=== PATIENT | female | born 1990 | race Caucasian/White ===

== ENCOUNTER 2021-01-08 09:55 | Day surgery (SDC) | payer BC ==
[~2021-01-08] VITALS: Ht 172.7 cm; Wt 119.4 kg
[~2021-01-08 09:55] MED LIST: CYCL10; IBUP800 PO; Norethindrone0.35 MG; TUMS200 MG PO; Verotin-Gr Cap1 EACH PO
== END 2021-01-08 11:38 | disposition home or self-care (01) ==
LOC: ORSCSDS 09:55
PROVIDERS: Student in an Organized Health Care Education/Training Program
PROC: 0DB58ZX Excision of Esophagus, Via Natural or Artificial Opening Endoscopic, Diagnostic (ICD-10-PCS; principal; 2021-01-08 11:15)
PROC: 0DB68ZX Excision of Stomach, Via Natural or Artificial Opening Endoscopic, Diagnostic (ICD-10-PCS; principal; 2021-01-08 11:15)
DX: Z01.818 Encounter for other preprocedural examination (principal); K21.9 Gastro-esophageal reflux disease without esophagitis; K20.90 Esophagitis, unspecified without bleeding; K29.70 Gastritis, unspecified, without bleeding; F41.9 Anxiety disorder, unspecified; E66.9 Obesity, unspecified; Z68.39 Body mass index [BMI] 39.0-39.9, adult; Z79.899 Other long term (current) drug therapy
CPT/HCPCS: 88305; J2704; J7120

== ENCOUNTER 2023-09-27 14:39 | Emergency (ER) | payer BC ==
[~2023-09-27] VITALS: Ht 172.7 cm; Wt 111.1 kg
[2023-09-27 15:29] LABS: BASOPHILS ABSOLUTE AUTO 0.05 K/mm3 (0.00-0.23); BASOPHILS PERCENT AUTO 1 % (0-2); EOSINOPHILS ABSOLUTE AUTO 0.01 K/mm3 (0.00-0.68); EOSINOPHILS PERCENT AUTO 0 % (0-6); Hematocrit 31.5 % (33.0-51.0); Hemoglobin 11.1 g/dL (11.5-16.0); IMMATURE GRAN ABSOLUTE AUTO 0.07 K/mm3 (0.00-0.10); IMMATURE GRAN PERCENT AUTO 1 % (0-1); LYMPHOCYTES ABSOLUTE AUTO 1.11 K/mm3 (0.84-5.20); LYMPHOCYTES PERCENT AUTO 19 % (21-46); MONOCYTES ABSOLUTE AUTO 0.77 K/mm3 (0.16-1.47); MONOCYTES PERCENT AUTO 13 % (4-13); Mean Corpuscular HGB 30.7 pg (26.0-34.0); Mean Corpuscular HGB Conc 35.2 g/dL (31.5-36.5); Mean Corpuscular Volume 87 fL (80-100); NEUTROPHILS PERCENT AUTO 66 % (41-73); Platelet Count 328 K/mm3 (150-400); RDW Coefficient Variation 12.7 % (11.7-14.2); RDW Standard Deviation 40.5 fL (35.1-46.3); Red Blood Cell Count 3.62 M/mm3 (3.80-5.20); White Blood Cell Count 5.91 K/mm3 (4.00-11.30)
[2023-09-27 15:52] LABS: Albumin, Blood 3.6 g/dL (3.4-5.0); Albumin/Globulin Ratio 0.9 (0.8-1.8); Bilirubin, Total 0.5 mg/dL (0.1-1.0); Bun/Creatinine Ratio 19.5 (12.0-20.0); Calcium, Blood 8.4 mg/dL (8.5-10.1); Creatinine, Blood 0.72 mg/dL (0.40-1.00); Globulin, Blood 4.2 g/dL (2.2-4.0); Potassium, Blood 4.1 mmol/L (3.5-5.5); Total Protein, Blood 7.8 g/dL (6.4-8.2)
[2023-09-27 17:37] VITALS: BP 133/95
== END 2023-09-27 17:40 | disposition home or self-care (01) ==
LOC: ER 14:39
PROVIDERS: Physician Assistant
DX: B34.9 Viral infection, unspecified (principal); Z91.048 Other nonmedicinal substance allergy status; G43.909 Migraine, unspecified, not intractable, without status migrainosus
CPT/HCPCS: 74177; 80053; 84145; 85025; Q9967

== ENCOUNTER 2023-10-01 12:40 | Day surgery (SDC) | payer BC ==
[2023-10-01] MEDS ORDERED: Lidocaine HCl 4% Cream 5 GM ONE ×2 (13:27)
== END 2023-10-02 22:56 | disposition home or self-care (01) ==
LOC: WOUND 12:40
DX: T81.31XD Disruption of external operation (surgical) wound, not elsewhere classified, subsequent encounter (principal); S31.809D Unspecified open wound of unspecified buttock, subsequent encounter; X58.XXXD Exposure to other specified factors, subsequent encounter; Y83.8 Other surgical procedures as the cause of abnormal reaction of the patient, or of later complication, without mention of misadventure at the time of the procedure
CPT/HCPCS: A6213; A9270; G0463

== ENCOUNTER 2023-10-08 03:10 | Day surgery (SDC) | payer BC ==
[2023-10-08] MEDS ORDERED: Lidocaine HCl 4% Cream 5 GM ONE (09:57)
== END 2023-10-08 22:57 | disposition home or self-care (01) ==
LOC: WOUND 03:10
DX: T81.31XA Disruption of external operation (surgical) wound, not elsewhere classified, initial encounter (principal); S31.809A Unspecified open wound of unspecified buttock, initial encounter; X58.XXXA Exposure to other specified factors, initial encounter
CPT/HCPCS: A6213; A9270

== ENCOUNTER 2023-10-13 01:53 | Day surgery (SDC) | payer BC | END 2023-10-13 23:18 | disposition home or self-care (01) | LOC: WOUND 01:53 | DX: T81.31XD Disruption of external operation (surgical) wound, not elsewhere classified, subsequent encounter (principal); S31.809D Unspecified open wound of unspecified buttock, subsequent encounter; Y83.8 Other surgical procedures as the cause of abnormal reaction of the patient, or of later complication, without mention of misadventure at the time of the procedure; X58.XXXD Exposure to other specified factors, subsequent encounter | CPT/HCPCS: A6213; G0463 ==

== ENCOUNTER 2023-10-20 01:29 | Day surgery (SDC) | payer BC | END 2023-10-20 23:05 | disposition home or self-care (01) | LOC: WOUND 01:29 | DX: T81.31XD Disruption of external operation (surgical) wound, not elsewhere classified, subsequent encounter (principal); S31.809D Unspecified open wound of unspecified buttock, subsequent encounter; X58.XXXD Exposure to other specified factors, subsequent encounter; Y83.8 Other surgical procedures as the cause of abnormal reaction of the patient, or of later complication, without mention of misadventure at the time of the procedure | CPT/HCPCS: A6213; G0463 ==

== ENCOUNTER 2023-11-04 05:34 | Day surgery (SDC) | payer BC | END 2023-11-04 23:12 | disposition home or self-care (01) | LOC: WOUND 05:34 | DX: T81.31XA Disruption of external operation (surgical) wound, not elsewhere classified, initial encounter (principal); S31.829A Unspecified open wound of left buttock, initial encounter; X58.XXXA Exposure to other specified factors, initial encounter ==

== ENCOUNTER 2023-11-06 03:22 | Day surgery (SDC) | payer BC | END 2023-11-06 23:47 | disposition home or self-care (01) | LOC: WOUND 03:22 | DX: T81.31XD Disruption of external operation (surgical) wound, not elsewhere classified, subsequent encounter (principal); S31.809D Unspecified open wound of unspecified buttock, subsequent encounter; X58.XXXD Exposure to other specified factors, subsequent encounter; Y83.8 Other surgical procedures as the cause of abnormal reaction of the patient, or of later complication, without mention of misadventure at the time of the procedure ==

== ENCOUNTER 2023-11-09 00:41 | Day surgery (SDC) | payer BC | END 2023-11-10 22:48 | disposition home or self-care (01) | LOC: WOUND 00:41 | DX: T81.31XA Disruption of external operation (surgical) wound, not elsewhere classified, initial encounter (principal) ==

== ENCOUNTER 2023-11-11 00:54 | Day surgery (SDC) | payer BC | END 2023-11-11 23:18 | disposition home or self-care (01) | LOC: WOUND 00:54 | DX: T81.31XD Disruption of external operation (surgical) wound, not elsewhere classified, subsequent encounter (principal); S31.809D Unspecified open wound of unspecified buttock, subsequent encounter; Y83.8 Other surgical procedures as the cause of abnormal reaction of the patient, or of later complication, without mention of misadventure at the time of the procedure; X58.XXXD Exposure to other specified factors, subsequent encounter ==

== ENCOUNTER 2023-11-13 01:26 | Day surgery (SDC) | payer BC | END 2023-11-13 23:11 | disposition home or self-care (01) | LOC: WOUND 01:26 | DX: T81.31XA Disruption of external operation (surgical) wound, not elsewhere classified, initial encounter (principal) ==

== ENCOUNTER 2023-11-20 02:01 | Day surgery (SDC) | payer BC | END 2023-11-20 23:32 | disposition home or self-care (01) | LOC: WOUND 02:01 | DX: T81.31XD Disruption of external operation (surgical) wound, not elsewhere classified, subsequent encounter (principal); Y83.8 Other surgical procedures as the cause of abnormal reaction of the patient, or of later complication, without mention of misadventure at the time of the procedure; S31.829D Unspecified open wound of left buttock, subsequent encounter | CPT/HCPCS: G0463 ==

== ENCOUNTER 2023-12-09 04:45 | Day surgery (SDC) | payer BC ==
[2023-12-09] MEDS ORDERED: Silver Nitr/Potassium Nitrate 1 EA APPL ONE (09:48)
== END 2023-12-09 22:59 | disposition home or self-care (01) ==
LOC: WOUND 04:45
DX: T81.31XA Disruption of external operation (surgical) wound, not elsewhere classified, initial encounter (principal); S31.829A Unspecified open wound of left buttock, initial encounter; X58.XXXA Exposure to other specified factors, initial encounter
CPT/HCPCS: A6196; A6213; A9270

== ENCOUNTER 2023-12-23 04:44 | Day surgery (SDC) | payer BC ==
[2023-12-23] MEDS ORDERED: Silver Nitr/Potassium Nitrate 1 EA APPL ONE (09:45)
== END 2023-12-23 23:39 | disposition home or self-care (01) ==
LOC: WOUND 04:44
DX: T81.31XD Disruption of external operation (surgical) wound, not elsewhere classified, subsequent encounter (principal); S31.829D Unspecified open wound of left buttock, subsequent encounter
CPT/HCPCS: A6196; A6213; A9270

== ENCOUNTER 2023-12-30 02:15 | Day surgery (SDC) | payer BC ==
[2023-12-30] MEDS ORDERED: Silver Nitr/Potassium Nitrate 1 EA APPL ONE (09:50)
== END 2023-12-30 23:38 | disposition home or self-care (01) ==
LOC: WOUND 02:15
DX: T81.31XA Disruption of external operation (surgical) wound, not elsewhere classified, initial encounter (principal); S31.829A Unspecified open wound of left buttock, initial encounter; X58.XXXA Exposure to other specified factors, initial encounter
CPT/HCPCS: A6196; A6213; A9270; G0463

== ENCOUNTER 2024-01-06 01:19 | Day surgery (SDC) | payer BC | END 2024-01-06 23:16 | disposition home or self-care (01) | LOC: WOUND 01:19 | DX: T81.31XD Disruption of external operation (surgical) wound, not elsewhere classified, subsequent encounter (principal); S31.809D Unspecified open wound of unspecified buttock, subsequent encounter; X58.XXXD Exposure to other specified factors, subsequent encounter; Y83.8 Other surgical procedures as the cause of abnormal reaction of the patient, or of later complication, without mention of misadventure at the time of the procedure | CPT/HCPCS: A6213; G0463 ==

== ENCOUNTER 2024-01-13 03:33 | Day surgery (SDC) | payer BC ==
[2024-01-13] MEDS ORDERED: Silver Nitr/Potassium Nitrate 1 EA APPL ONE (09:46)
== END 2024-01-13 23:53 | disposition home or self-care (01) ==
LOC: WOUND 03:33
DX: T81.31XA Disruption of external operation (surgical) wound, not elsewhere classified, initial encounter (principal); S31.829A Unspecified open wound of left buttock, initial encounter; X58.XXXA Exposure to other specified factors, initial encounter
CPT/HCPCS: A6196; A6213; A9270; G0463

== ENCOUNTER 2024-01-19 08:46 | Day surgery (SDC) | payer BC | END 2024-01-19 23:00 | disposition home or self-care (01) | LOC: WOUND 08:46 | DX: T81.31XD Disruption of external operation (surgical) wound, not elsewhere classified, subsequent encounter (principal) | CPT/HCPCS: A6213; G0463 ==